=== PATIENT | male | born 1995 | race Caucasian/White ===

== ENCOUNTER 2018-09-10 15:59 | Emergency (ER) | payer BC ==
[~2018-09-10] VITALS: Ht 190.5 cm; Wt 83.9 kg
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
[2018-09-10] MEDS ORDERED: ONDA4TAB11 PO (16:24)
[2018-09-10 16:31] VITALS: BP 126/70
== END 2018-09-10 16:30 | disposition home or self-care (01) ==
LOC: EDUNIT# 15:59 → ER 16:00
DX: S00.93XA Contusion of unspecified part of head, initial encounter (principal); S19.80XA Other specified injuries of unspecified part of neck, initial encounter; R40.2142 Coma scale, eyes open, spontaneous, at arrival to emergency department; R40.2252 Coma scale, best verbal response, oriented, at arrival to emergency department; R40.2362 Coma scale, best motor response, obeys commands, at arrival to emergency department; Y04.0XXA Assault by unarmed brawl or fight, initial encounter
CPT/HCPCS: 99282